=== PATIENT | male | born 1950 | race Caucasian/White ===

== ENCOUNTER 2016-08-03 08:12 | Emergency (ER) | payer MEDICARE, OTHER ==
--- NOTE | ~2016-08-03 | ER ---
PATIENT'S NAME: ANA PAULA MEJÍA [facility] AGE: 66 Y [address] ROOM: [place] [address] LOCATION: [facility] ADMIT DATE: 08/03/2016 ER/Outpatient Report DISCHARGE DATE: 08/03/2016 FAMILY PHYSICIAN: Omar Armstrong MD ATTENDING PHYSICIAN: Nicanor Velasquez CHIEF COMPLAINT: Chest pain. HISTORY OF PRESENT ILLNESS: The pain started Saturday. It is pressure-like and located in the center of the chest. It fluctuates in intensity, but has not completely gone away since its onset. Its peak seems to be at night or early in the morning. He took nitroglycerin twice, and one time it helped, the other time it did not. He has a history of stents, but no definite heart attack. However, he has had a recent catheterization in 2013 with no significant findings, per the patient. He follows with Dr. Buchanan, lehr attendant. He has not taken anything else to try to make this better. His current symptoms are rated at 2/10. They do not radiate. PAST MEDICAL HISTORY: Documented on the record and have been reviewed by me. SOCIAL HISTORY: Documented on the record and have been reviewed by me. MEDICATIONS: Documented on the record and have been reviewed by me. ALLERGIES: DOCUMENTED ON THE RECORD AND HAVE BEEN REVIEWED BY ME. REVIEW OF SYSTEMS: All systems were reviewed and negative except as noted in the HPI. PHYSICAL EXAMINATION: VITAL SIGNS: Blood pressure 161/89, pulse 55, respiratory rate 16, temperature 98 degrees, and SpO2 is 99% on room air. GENERAL: Age-appropriate male, in no obvious pain or distress, resting comfortably on the exam table. NEUROLOGIC: Awake and alert. GCS 15. No focal deficits or asymmetry on exam. HEENT: Normocephalic, atraumatic. Eyes are PERRL. Oropharynx is clear. NECK: Supple. Trachea is midline. PATIENT'S NAME: ANA PAULA MEJÍA [facility] AGE: 66 Y [address] ROOM: [place] [address] LOCATION: [facility] ADMIT DATE: 08/03/2016 ER/Outpatient Report DISCHARGE DATE: 08/03/2016 FAMILY PHYSICIAN: Omar Armstrong MD ATTENDING PHYSICIAN: Nicanor Velasquez CHEST: Heart has regular rate and rhythm with no murmurs. Lungs are clear to auscultation bilaterally with no rhonchi, wheezes, or rales. ABDOMEN: Obese, but soft, nontender, and nondistended. No masses appreciated. BACK: Nontender to palpation without CVA tenderness. EXTREMITIES: Warm and well perfused. There is no erythema or edema. No deformities appreciated. SKIN: Warm, dry, and intact. Not diaphoretic. LABS AND X-RAYS: Chest x-ray, per my read, is unremarkable. EKG initially reveals sinus bradycardia, with no signs of ischemia, with otherwise normal intervals and axis, borderline first-degree heart block. Repeat EKG is unchanged from previous. No significant change compared to 12/09/2015. Labs: WBC is 10.3, hemoglobin 14.6, and platelets of 197. INR is 2.0. Initial chemistry: Sodium 142, potassium 4.4, chloride 108, CO2 is 27, BUN is 17, creatinine is 1.5, and GFR is 47. LFTs grossly unremarkable. Magnesium 2.2. CPK 255, CK-MB is 1.8, and troponin-I is below threshold. Repeat labs reveal a creatinine of 1.3 and GFR of 155 with no other significant changes. CK-MB at 1.7, troponin-I remains below threshold, CPK down to 198. IMPRESSION: 1. Chest pain. 2. Azotemia. EMERGENCY DEPARTMENT COURSE: The patient was evaluated as above. By the time we had completed our initial evaluation, he had no chest pain and remained chest pain-free throughout his evaluation in the ER. He did not require any nitroglycerin. He was given aspirin. Based on his azotemia with slight decrease in his renal function, I did elect to give him some fluids. With recheck of the troponin, I did obtain a repeat renal function with marked increase and improvement in his renal function. With his history of renal carcinoma, status post nephrectomy, he appears to be at his baseline now. He remained borderline bradycardic at 50 beats per minute and varied between 45 and 55 beats. He was walked several 100 feet with no significant symptoms at that time. It did not reproduce his chest pain, and he had no shortness of breath. He had no unsteadiness and was otherwise doing well. I contacted Dr. Buchanan, his primary lehr attendant. The patient will contact him for followup early next week. The patient should return immediately if he develops recurrent chest pain. PATIENT'S NAME: ANA PAULA MEJÍA [facility] AGE: 66 Y [address] ROOM: [place] [address] LOCATION: [facility] ADMIT DATE: 08/03/2016 ER/Outpatient Report DISCHARGE DATE: 08/03/2016 FAMILY PHYSICIAN: Omar Armstrong MD ATTENDING PHYSICIAN: Nicanor Velasquez MD JH/kassyl /[id number] d: 08/03/16 1313 t: 08/04/16 0623, OUTPATIENT REPORT
[2016-08-03 08:34] LABS: BASOPHIL # 0.1 K/uL (0.0-0.2); BASOPHIL % 0.9 %; EOSINOPHIL # 0.3 K/uL (0.0-0.5); EOSINOPHIL % 3.2 %; HEMATOCRIT 46.4 % (37.0-53.0); HEMOGLOBIN 14.6 g/dL (11.0-16.0); IMMATURE GRANULOCYTE % 0.3 %; LYMPHOCYTE # 2.5 K/uL (0.8-4.0); LYMPHOCYTE % 23.8 %; MCHC 31.5 gm/dL (32.0-36.5); MCV 95.5 fl (83.0-98.0); MONOCYTE # 1.4 K/uL (0.0-1.0); MONOCYTE % 13.8 %; MPV 11.1 fl (9.4-12.4); NRBC % 0 /100WBC (0-0.00); PLATELET COUNT 197 K/uL (150-450); RBC 4.86 M/uL (3.50-5.50); RDW-CV 13.2 % (11.9-14.6); WBC 10.3 K/uL (4.0-11.0)
[2016-08-03 08:56] LABS: ALBUMIN 3.8 gm/dL (3.5-5.0); ALK PHOS 111 IU/L (33-138); ALT 33 IU/L (12-78); ANION GAP 11.4 (10.0-19.0); AST 26 IU/L (10-40); BLOOD UREA NITROGEN 17 mg/dL (6-24); CALCIUM 8.1 mg/dL (8.5-10.5); CHLORIDE 108 mMol/L (96-110); CO2 27 mMol/L (22-32); CPK 255 IU/L (35-332); CREATININE 1.5 mg/dL (0.6-1.3); ESTIMATED GFR (MDRD EQUATION) 47; MAGNESIUM 2.2 mg/dL (1.3-2.6); POTASSIUM 4.4 mMol/L (3.7-5.1); SODIUM 142 mMol/L (135-145); TOTAL BILIRUBIN 0.4 mg/dL (0.0-1.5)
[2016-08-03 09:25] LABS: PROTIME 22.5 SECONDS (9.6-11.1)
[2016-08-03 10:08] LABS: PTT 38 SECONDS (25-32)
[2016-08-03 10:47] LABS: ALBUMIN 3.1 gm/dL (3.5-5.0); ANION GAP 12.5 (10.0-19.0); CREATININE 1.3 mg/dL (0.6-1.3); POTASSIUM 4.5 mMol/L (3.7-5.1)
[2016-08-03 10:48] LABS: CPK 198 IU/L (35-332)
[2016-08-03 10:49] LABS: CALCIUM 7.2 mg/dL (8.5-10.5); PHOSPHORUS 1.9 mg/dL (2.5-4.9)
[2016-08-28] MEDS ORDERED: ZOCOR20 MG PO (12:30)
[2016-08-28] MEDS ORDERED: COUMADIN ** IA5 MG PO (12:31)
[2016-08-28] MEDS ORDERED: LOPRESSOR25 MG PO (12:31)
[2016-08-28] MEDS ORDERED: MAVIK2 MG PO (12:32)
[2016-08-28] MEDS ORDERED: NORVASC2.5 MG PO (12:32)
[2016-08-28] MEDS ORDERED: NITROSTAT0.4 MG SL (12:33)
[2016-08-28] MEDS ORDERED: COLACE100 MG PO (12:34)
== END 2016-08-03 11:12 | disposition disaster alternative care site (69) ==
LOC: GMED 08:12
PROVIDERS: Emergency Medicine
DX: R07.9 Chest pain, unspecified (principal); R79.89 Other specified abnormal findings of blood chemistry; E66.9 Obesity, unspecified; Z79.899 Other long term (current) drug therapy; Z79.01 Long term (current) use of anticoagulants
CPT/HCPCS: J7030

== ENCOUNTER → 2016-08-17 | Outpatient (CLI) | payer MEDICARE, OTHER ==
[~2016-08-17] MED LIST: ASPIRIN (CHILDR81 MG PO; COLACE100 MG PO; CORDARONE,PACE200 MG PO; COUMADIN ** IA5 MG PO; LOPRESSOR25 MG PO; MAVIK2 MG PO; NITROSTAT0.4 MG SL; NORVASC2.5 MG PO; ZOCOR20 MG PO
--- NOTE | ~2016-08-17 | ESTC ---
Cardiac Perfusion Imaging Demographics Patient Name KYM Sahni Gender Male Patient Number [id number] Race Visit Number [id number] [place] [id number] Room Number Accession Number [id number] Height 71 inches Date of 1950 Weight 230 pounds Interpreting Cheikh Mcelroy Date of study 08/17/2016 Physician Supervising /TONIA Mcelroy NM Technologist Mabel Leon MD Ordering Physician [facility] Stress Heike Christy MD patient care technician instructor [facility] Stress ECG Reading [facility] Nurse Ashley Stone Physician RN Medications Reviewed with Patient prior to Procedure. Procedure Procedure Type: Nuclear Stress Test:Exercise, Cardiolite Stress Test Procedure Start time: 08/17/2016 07:30 Indications: Atrial fibrillation and Chest pain. Risk Factors The patient risk factors include:prior PCI on 06/03/2003;former tobacco use and prior [place] . Conclusions Summary Perfusion Images: The overall quality of the study is good. Left ventricular cavity is noted to be normal on the stress and normal on the rest images. There is no evidence of abnormal lung activity. The right ventricle is not visualized an cannot be assessed. Impression ECG portion of the exercise stress test is clinically negative for ischemia by diagnostic criteria. Peña treadmill score is 6 which corresponds to low risk stress test. Myocardial perfusion imaging is mildly abnormal. The images reveal a partially reversible defect in the apical wall at peak stress, this is a very small area with minimal perfusion defect, this is likely secondary to apical thinning and there is no evidence of any significant ischemia. Overall left ventricular systolic function was normal. Calculated LVEF is 62% and and TID ratio is 0.97. This is a low risk stress test. There are no previous studies for comparison . Stress Protocols Resting ECG atrial fibrillation Pre-stress physical exam: s1 s2, irrr no wheezing Predicted HR: 153 bpm ECG Findings No ECG changes suggestive of ischemia. Arrhythmias Pt in afib before the stress test. Symptoms Shortness of breath. Fatigue. Stress Interpretation The electrocardiographic portion of the stress test was negative for ischemia. Blood pressure response was normal, heart rate response was normal for exertion. The Peña Treadmill Score was 6. This corresponds to a low risk stress test. Imaging Results Applied corrections - Motion correction applied High risk findings Summed scores - Summed stress score: 3 - Summed rest score: 5 - Summed difference score: -2 Stress ejection Ejection fraction:62 % EDV :97 ml ESV :37 ml Stroke volume :60 ml LV mass :132 gr Imaging Protocols Rest Stress Isotope:Tc99m Sestamibi IV Isotope: Tc99m Sestamibi IV Isotope dose:14.6 mCi Isotope dose:44.2 mCi Date:08/17/2016 06:54 Date:08/17/2016 08:50 Technique: SPECT Technique: Gated Supine SPECT Supine Scan Time:45-60 minutes post Scan Time:45-60 minutes post injection injection Medical History Admission Data Admission date: 08/17/2016 Admission Time: 06:30 Hospital Status: Outpatient. Signatures dtt: PORFIRIO PHELPS dtd: 08/17/16 0730 Physician Self Edit
== END | disposition disaster alternative care site (69) ==
LOC: GRAD 06:30
DX: I25.10 Atherosclerotic heart disease of native coronary artery without angina pectoris (principal); I25.2 Old myocardial infarction; R07.9 Chest pain, unspecified; Z87.891 Personal history of nicotine dependence
CPT/HCPCS: A9500

== ENCOUNTER 2016-08-29 07:22 | Inpatient (IN) | payer MEDICARE, OTHER ==
[~2016-08-29] VITALS: Ht 185.4 cm; Wt 104.4 kg
--- NOTE | ~2016-08-29 | ECHO ---
Transesophageal Echocardiography Report (JARED) Demographics Patient Name ANA PAULA MEJÍA Date of Study 08/29/2016 R Patient Number [id number] Visit Number [id number] Date of 1950 Room Number Gender Male Number Age 66 year(s) Referring Patti Mares MD Cleaning Attendant [place] Physician Nava Curiel [facility], Lety [facility] Physician Interpreting Nava Davidson Advertising Sales Agent Physician Supervising Ordering Nava Davidson MD/TONIA Physician Nurse Stress Test Engine Mechanic Conclusions Summary Transesophageal echocardiogram was done under general anesthesia without difficult probe placement . The estimated LV ejection fraction is 60-65 %. Normal left ventricular systolic function. Normal right ventricular function. There is evidence of PFO by color Doppler and bubble study. There is no obvious LA or JACKIE appendage thrombus. Mild mitral valve regurgitation. The aortic valve is mildly sclerotic. Mild tricuspid valve regurgitation. Trivial pulmonic valve regurgitation by color Doppler. Minimal thoracic aorta atheroma. Procedure Type of Study JARED procedure:2D Echocardiogram, M-Mode, Doppler , Color Doppler, Contrast study. Procedure Date Date: 08/29/2016 Start: 08:47 AM Study Location: Inpatient Portable Technical Quality: Good visualization Indications:Atrial fibrillation. Additional Indications:Cardioversion Patient Status: Routine Contrast Medium: Bubble Study. Amount - 1 ml HR: 83 bpm BP: 115/71 mmHg JARED Performed By: the attending and the wildlife ecology professor Type of Anesthesia: General anesthesia Allergies - Other:(Microfoam tape). Findings Left Ventricle The left ventricle is normal in size . Aortic Valve The aortic valve is mildly sclerotic. Signature dtt: LETY ROCA dtd: 08/29/16 0847 Physician Self Edit
--- NOTE | ~2016-08-29 | PUL ---
PATIENT'S NAME: ANA PAULA MEJÍA [facility] AGE: 66 Y [address] ROOM: [address] [place], [place] [address] [facility] ADMIT DATE: 08/29/2016 Pulmonary DISCHARGE DATE: [facility] PHYSICIAN: Omar Armstrong MD ATTENDING PHYSICIAN: HERMINIA ROCA NAME OF PROCEDURE: Pulmonary Function Test DATE OF PROCEDURE: August 29, 2016 TECH: HARDEEP Paniagua REASON FOR EXAM: Pre-procedure RESULTS: 1. FVC was 4.08 liters which is 81% of predicted and normal, FEV1 was 3.22 liters which is 86% of predicted and normal, and FEV1/FVC was 79% and normal. The flow volume curve did not reveal any significant airflow limitation. After bronchodilator administration FVC increased to 4.37 liters which is a 7% increase and FEV1 increased to 3.57 liters, which is an 11% increase. FEV1/FVC was 82%. 2. DLCO was 23.4 with an adjusted DLCO of 24.5 which is 94% of predicted and normal. 3. Total lung capacity was 6.21 liters which is 85% of predicted and slightly lower than the lower limit of normal which is 6.3 L, and residual volume was 1.78 liters which is 66% of predicted and low. PHYSICIAN INTERPRETATION: The patient has no airflow limitation and no significant bronchodilator response. His diffusion capacity is normal. There is evidence of mild restrictive lung disease. MD MICHELA MALONE/shabana /[id number] dtt: 08/31/16 1017 , ANUSHA YEUNG dtd: 08/31/16 0937
--- NOTE | ~2016-08-29 | HP ---
PATIENT'S NAME: MIGUEL HAHNREL Bora [facility] AGE: 66 Y [address] ROOM: [place] [address] LOCATION: [facility] ADMIT DATE: 08/29/2016 History & Physical DISCHARGE DATE: FAMILY PHYSICIAN: Omar Armstrong MD ATTENDING PHYSICIAN: HERMINIA ROCA DATE OF SERVICE: CHIEF COMPLAINT: Palpitations. HISTORY OF PRESENT ILLNESS: Mr. Hahn is a pleasant 66-year-old male with history of atrial fibrillation. The patient stated that he has been very symptomatic since last several months with complaints of palpitations and fluttering chest pain. He had JARED in anticipation of cardioversion in 2010, however, a possible left atrial appendage thrombus was noted and he was not cardioverted. The patient was recently seen in clinic due to increasing palpitations. He continued to have palpitations despite reasonable heart rate control. He has a past medical history of coronary artery disease, status post cardiac catheterization in 2010 which showed 10% distal LAD stenosis, 80% ostial ramus intermedius stenosis, 20% proximal right coronary artery, and 20% PLB branch stenosis. He has a history of percutaneous intervention of obtuse marginal branch and the stent was patent on cardiac catheterization in 2010. He had an echocardiogram in 2013 which showed an ejection fraction of 60%. His last stress test in May 2015 showed reversible defect in the mid to apical lateral wall consistent with ischemia in the territory of left circumflex coronary artery. SOCIAL HISTORY: The patient is and lives with his . PERSONAL HISTORY: He quit smoking several years ago. Occasionally, he has alcoholic beverages. FAMILY HISTORY: His grandmother and uncle have heart disease, but he does not know the nature of the heart disease. CURRENT MEDICATIONS: 1. Amlodipine 2.5 mg daily. 2. Metoprolol 75 mg b.i.d. 3. Nitroglycerin 0.4 mg as needed. 4. Simvastatin 40 mg daily. 5. Mavik 2 mg daily. PATIENT'S NAME: ANA PAULA HAHN [facility] AGE: 66 Y [address] ROOM: [place] [address] LOCATION: [facility] ADMIT DATE: 08/29/2016 History & Physical DISCHARGE DATE: FAMILY PHYSICIAN: Omar Armstrong MD ATTENDING PHYSICIAN: HERMINIA ROCA 6. Warfarin 5 mg daily. PHYSICAL EXAMINATION: GENERAL: He is awake, alert, and oriented. VITAL SIGNS: His pulse rate is 56 beats per minute, blood pressure is 106/60, and respiratory rate 16. HEENT: His head is atraumatic and normocephalic. Pupils are bilaterally equal. Tongue is moist. NECK: No significant cervical lymphadenopathy is present. No significant jugular venous distention is present. CARDIOVASCULAR: S1, S2 are audible. They are regular in rate and rhythm with no audible murmur. RESPIRATORY: Chest is clear to auscultation. ABDOMEN: Soft and nontender. Bowel sounds are present. EXTREMITIES: No pedal edema. NEUROLOGIC: He is awake, alert, and oriented. No focal neurological deficits noted. LABORATORY DATA: His EKG showed sinus bradycardia at 56 beats per minutes with first-degree AV block. GA interval is 226 msec, QTc interval is 444 msec. ASSESSMENT AND PLAN: 1. Atrial fibrillation, symptomatic, status post cardioversion. The patient has been having significant symptoms when he was in atrial fibrillation and hence cardioversion performed as he was having symptoms despite ventricular rate control. Different antiarrhythmics were considered. We will avoid sotalol and Tikosyn in view of baseline prolonged QTc interval. Discussed with the patient at length risks and benefits of amiodarone and the patient wants to proceed with it. We will start the patient on IV amiodarone followed by p.o. amiodarone. Monitor EKGs to monitor QTc interval. We will also obtain baseline liver function tests and renal function test and pulmonary function test and thyroid function test. 2. Hypertension, well controlled. We will continue current medical therapy and monitor. 3. Coronary artery disease, status post percutaneous coronary intervention of obtuse marginal branch in 2009. Continue medical therapy as tolerated with aspirin, statins, and beta blockers. We will monitor the patient on telemetry. The plan of care was discussed with the patient in detail. HERMINIA ROCA MD PATIENT'S NAME: ANA PAULA HAHN [facility] AGE: 66 Y [address] ROOM: [address] [address] LOCATION: [facility] ADMIT DATE: 08/29/2016 History & Physical DISCHARGE DATE: FAMILY PHYSICIAN: Omar Armstrong MD ATTENDING PHYSICIAN: HERMINIA ROCA/flex /[id number] D: 0 T: 421 HISTORY & PHYSICAL
--- NOTE | ~2016-08-29 | OR ---
PATIENT'S NAME: ANA PAULA MEJÍA [facility] AGE: 66 Y [address] ROOM: [address] [address] [facility] ADMIT DATE: 08/29/2016 OR/Procedure Report DISCHARGE DATE: FAMILY PHYSICIAN: Omar Armstrong MD ATTENDING PHYSICIAN: LETY ROCA SURGEON: Lety Roca MD BILINGUAL TRAINER: DATE OF PROCEDURE: 08/29/2016 Cardioversion Report INDICATION: Symptomatic atrial fibrillation. PROCEDURE: The procedure was described to the patient and informed written consent was obtained. The patient was given sedation by an caustic operator. JARED was performed which did not show any obvious clot. The patient was then cardioverted using biphasic DC cardioverter defibrillator. His rhythm prior to cardioversion was atrial fibrillation. His rhythm post cardioversion was sinus bradycardia at 56 beats per minute. The patient was given a total of 2 shocks at 100 joules and 200 joules. The patient tolerated the procedure well. His vital signs post cardioversion were heart rate of 56 beats per minute and blood pressure was 106/60. MD YAN BRUNSON/kassyl /[id number] d: 08/29/16 1818 t: 09/03/16 1418, OPERATIVE SUMMARY
[~2016-08-29 07:22] MED LIST changes: -ASPIRIN (CHILDR81 MG PO; -CORDARONE,PACE200 MG PO
[2016-08-29 09:04] LABS: PROTIME 22.4 SECONDS (9.6-11.1)
[2016-08-29 10:31] LABS: BASOPHIL # 0.1 K/uL (0.0-0.2); EOSINOPHIL # 0.3 K/uL (0.0-0.5); EOSINOPHIL % 3.4 %; HEMOGLOBIN 12.6 g/dL (11.0-16.0); IMMATURE GRANULOCYTE % 0.3 %; LYMPHOCYTE # 1.9 K/uL (0.8-4.0); LYMPHOCYTE % 26.6 %; MCH 30.1 pg (27.0-34.0); MCHC 31.5 gm/dL (32.0-36.5); MCV 95.7 fl (83.0-98.0); MONOCYTE # 0.9 K/uL (0.0-1.0); MONOCYTE % 11.7 %; MPV 11.2 fl (9.4-12.4); NEUTROPHIL # (ANC) 4.1 K/uL (1.4-9.0); NRBC % 0 /100WBC (0-0.00); PLATELET COUNT 173 K/uL (150-450); RBC 4.18 M/uL (3.50-5.50); RDW-CV 13.3 % (11.9-14.6); WBC 7.3 K/uL (4.0-11.0)
[2016-08-29 10:54] LABS: ALBUMIN 3.3 gm/dL (3.5-5.0); ANION GAP 14.2 (10.0-19.0); CALCIUM 7.9 mg/dL (8.5-10.5); CREATININE 1.3 mg/dL (0.6-1.3); POTASSIUM 4.2 mMol/L (3.7-5.1); TOTAL PROTEIN 6.6 g/dL (6.0-8.4)
[2016-08-29 10:57] LABS: TOTAL BILIRUBIN 0.5 mg/dL (0.0-1.5)
--- NOTE | 2016-08-29 16:56 | NUR ---
Significant Event: CARDIOVERSION TODAY SUCCESSFUL. RHYTHM SINUS EDDIE RATES 40-60'S. SBP 120-140'S. AMIODARONE GTT INITIATED PER PROTOCOL WITH VERBAL ORDER PER DR ROCA TO HOLD INITIAL BOLUS. ON RA. AFEBRILE. UP TO BATHROOM SBA WITH USE OF URINAL. NO BM. PIV TO R) INNER FA WITH AMIO GTT. OFF FLOOR THIS AFTERNOON FOR PFT'S. NO C/O PAIN. COUMADIN DOSE PER PHARMACY. Follow up: CONT AMIO GTT PER PROTOCOL. MONITOR HOURLY VITALS. CONT PER PLAN OF CARE.
[2016-08-30 04:46] LABS: BASOPHIL # 0.1 K/uL (0.0-0.2); BASOPHIL % 0.6 %; EOSINOPHIL # 0.3 K/uL (0.0-0.5); EOSINOPHIL % 3.9 %; HEMATOCRIT 39.6 % (37.0-53.0); HEMOGLOBIN 12.5 g/dL (11.0-16.0); IMMATURE GRANULOCYTE % 0.5 %; LYMPHOCYTE # 2.2 K/uL (0.8-4.0); MCH 30.5 pg (27.0-34.0); MCHC 31.6 gm/dL (32.0-36.5); MCV 96.6 fl (83.0-98.0); MONOCYTE % 11.5 %; MPV 11.7 fl (9.4-12.4); NEUTROPHIL # (ANC) 5.1 K/uL (1.4-9.0); NEUTROPHIL % 58.5 %; NRBC % 0 /100WBC (0-0.00); PLATELET COUNT 167 K/uL (150-450); RDW-CV 13.7 % (11.9-14.6); WBC 8.7 K/uL (4.0-11.0)
--- NOTE | 2016-08-30 04:55 | NUR ---
Significant Event: Patient is alert and oriented x3. SBP 137 with first assessment. 110s with second and third. HR isaias 40s-60s. All other vital signs stable. On RA. Amiodarone gtt continues at 0.5mg/min. Off at 1045 today per protocol. Up in room with stand-by assist. No complaints of pain. Increase coumadin by added 1mg x1 per Dr. Vick last night. Patient calm and cooperative with all cares. Follow up: Will continue to monitor heart rate and rhythm. Monitor INR. Home soon?
[2016-08-30 05:19] LABS: ALBUMIN 3.3 gm/dL (3.5-5.0); CALCIUM 8.2 mg/dL (8.5-10.5); CREATININE 1.3 mg/dL (0.6-1.3); TOTAL PROTEIN 6.7 g/dL (6.0-8.4)
[2016-08-30 05:22] LABS: TOTAL BILIRUBIN 0.3 mg/dL (0.0-1.5)
[2016-08-30 08:16] LABS: INR - (THERAPEUTIC) 2.1 (0.9-1.1); PROTIME 23.4 SECONDS (9.6-11.1)
--- NOTE | 2016-08-30 11:32 | NUR ---
Introduced self and CM role to Gust[place]. He tells me that he lives at home in [place] with his , Tracey. Gustabo plans on returning there when he is medically cleared to do so. He doesn't use any DME at baseline and denies the need for any upon discharge. His will come and pick him up when he is cleared to go home. Denies the need for any HHC at this point. He does his own medications at home and has no issues with understanding or administering them. No other questions, needs or concerns. Will continue to follow and assist. Plan home.
--- NOTE | 2016-08-30 16:16 | NUR ---
Significant Event: pt off amio. drip this am, po started. Cream and benadryl for itchy spots from cardioversion. No c/o pain. Pt up self bathroom. Follow up:home tomorrow
--- NOTE | 2016-08-31 05:11 | NUR ---
Significant Event: Patient alert and oriented x3. Vital signs stable. On RA. HR continues SR-SB. No complaints of pain. Up independently in room. Patient calm and cooperative with all cares. Follow up: Home Today? Will continue to monitor heart rate and rhythm.
[2016-08-31 05:18] LABS: INR - (THERAPEUTIC) 2.1 (0.9-1.1)
[2016-08-31] MEDS ORDERED: CORDARONE,PACE200 MG PO (10:51)
[2016-08-31] MEDS ORDERED: ASPIRIN (CHILDR81 MG PO (10:52)
--- NOTE | 2016-08-31 12:33 | NUR ---
PATIENT DISMISSED PER CAR W/ DAUGHTER. PATIENT TRANSPORTED TO CAR PER W/C WITH NURSE. REVIEWED DISMISSAL INSTRUCTIONS AND MEDICATIONS W/ PATIENT, PATIENT VERBALIZED UNDERSTANDING. GAVE PATIENT EDUCATION SHEETS ON NEW MEDICATIONS AND A-FIBRILLATION.
== END 2016-08-31 12:08 | disposition disaster alternative care site (69) | DRG 310 ==
LOC: GSDC 07:22 → GPCU 07:23 → EDSTATUS 08:00 → GOPD 08:00 → GPCU 08-31 12:08
PROVIDERS: Nurse Practitioner; ADMIT Internal Medicine Interventional Cardiology
DX: I48.91 Unspecified atrial fibrillation (principal); I10 Essential (primary) hypertension; E78.5 Hyperlipidemia, unspecified; I25.10 Atherosclerotic heart disease of native coronary artery without angina pectoris; I44.0 Atrioventricular block, first degree; Z87.891 Personal history of nicotine dependence
CPT/HCPCS: J0282; J2001; J7030; J7060

== ENCOUNTER → 2016-09-17 | Outpatient (CLI) | payer MEDICARE, OTHER ==
[~2016-09-17] MED LIST changes: +ASPIRIN (CHILDR81 MG PO; +CORDARONE,PACE200 MG PO
[2016-09-17 13:05] LABS: ALBUMIN 3.7 gm/dL (3.5-5.0); ALK PHOS 95 IU/L (33-138); ALT 25 IU/L (12-78); AST 18 IU/L (10-40); TOTAL PROTEIN 7.5 g/dL (6.0-8.4)
[2016-09-17 13:09] LABS: TOTAL BILIRUBIN 0.4 mg/dL (0.0-1.5)
== END | disposition disaster alternative care site (69) ==
LOC: LNHI 12:49
PROVIDERS: Internal Medicine Interventional Cardiology
DX: I48.91 Unspecified atrial fibrillation (principal); E78.5 Hyperlipidemia, unspecified

== ENCOUNTER → 2017-01-11 | Outpatient (CLI) | payer MEDICARE, OTHER ==
--- NOTE | ~2017-01-11 | PUL ---
[facility] AGE[facility] 66 Y [address] ROOM: [place] [address] LOCATION: [facility] ADMIT DATE: 01/11/2017 Pulmonary DISCHARGE DATE: FAMILY PHYSICIAN: Omar Armstrong MD ATTENDING PHYSICIAN: HERMINIA ROCA NAME OF PROCEDURE: Pulmonary Function Test DATE OF PROCEDURE: January 11, 2017 TECH: HARDEEP Rivera REASON FOR EXAM: Medication surveillance PROCEDURES PERFORMED: Spirometry with bronchodilator assessment. Measurement of maximal voluntary ventilation. Measurement of lung volumes. Measurement of diffusion capacity. RESULTS: Spirometry showed pre bronchodilator FVC was 4.26 liters, 85% of predicted. Post bronchodilator FVC was 4.1 liters, 84% of predicted. Pre bronchodilator FEV1 was 3.46 liters, 93% predicted. Post bronchodilator FEV1 was 3.5 liters, 94% of predicted. FEV1/FVC was 81, 110% of predicted and [id number]% was 3.67 liters/second, 127% of predicted. Peak flow was 8.6 liters, 92% of predicted. This data did not change significantly following inhaled bronchodilator. Lung volumes showed total lung capacity was 5.96 liters, 82% of predicted. Functional residual capacity was 2.02 liters, 52% of predicted. Residual volume was 1.71 liters, 63% of predicted. Diffusing capacity not adjusted for hemoglobin was 84% of predicted. The single breath alveolar volume was 4.77 liters, which is a marginal estimate of the total lung capacity. The flow volume loop pattern is normal. PHYSICIAN INTERPRETATION: The above data and corresponding flow volume curve are most compatible with normal pulmonary function normal lung volumes, and no gas transfer impairment. MD DIPESH RORDÍGUEZ/shabana PATIENT'S NAME: ANA PAULA MEJÍA [facility] AGE: 66 Y [address] ROOM: [place] [address] LOCATION: [facility] ADMIT DATE: 01/11/2017 Pulmonary DISCHARGE DATE: FAMILY PHYSICIAN: Omar Armstrong MD ATTENDING PHYSICIAN: HERMINIA ROCA /[id number] dtt: 01/17/17 1159 , DYLLAN CHRISTOPHER dtd: 01/16/17 1255
== END | disposition disaster alternative care site (69) ==
LOC: GRTH 12:39
DX: Z51.81 Encounter for therapeutic drug level monitoring (principal); Z79.899 Other long term (current) drug therapy